=== PATIENT | male | born 1955 | race Caucasian/White ===

== ENCOUNTER 2023-03-11 16:42 | Emergency (ER) | payer OTHER, SELFPAY ==
[2023-03-11 17:24] VITALS: BP 149/84; PULSE 65; RESP 16; TEMP 36.3; O2SAT 99
[2023-03-11 18:10] LABS: Influenza A QL RT-PCR Negative (Negative); Influenza B QL RT-PCR Negative (Negative); RSV RNA, RT-PCR Negative (Negative); SARS-CoV-2 RNA PCR Negative (Negative)
--- NOTE | 2023-03-11 19:35 | ED.GENADULT ---
HPI - General Adult General Chief complaint: Upper Respiratory Infection <KESHAV Blackwell Last Filed: 03/12/23 03:17> Stated complaint: neck pain/body aches <KESHAV Blackwell Last Filed: 03/12/23 03:17> Time Seen by Provider: 03/11/23 19:02 <KESHAV Blackwell Last Filed: 03/12/23 03:17> Source: patient <KESHAV Blackwell Last Filed: 03/12/23 03:17> Mode of arrival: ambulatory <KESHAV Blackwell Last Filed: 03/12/23 03:17> Limitations: no limitations <KESHAV Blackwell Last Filed: 03/12/23 03:17> History of Present Illness HPI narrative: This is a 67-year-old male who presents to the ED with chief complaint of URI symptoms for the past 4 days. Patient states that he has had intermittent fevers, body aches, headache, sinus congestion and sore throat. Reports occasional cough. Denies any shortness of breath or chest pain. Denies any known sick contacts but is around a lot of people at work. Reports Tmax of 100.4. He states his symptoms do improve greatly with Aleve. He states that home COVID test was so he wanted to come here. <Neftali Yun PA-C - Last Filed: 03/12/23 03:17> Related Data Allergies/adverse reactions: Allergies Allergy/AdvReac Type Severity Reaction Status Date / Time No Known Allergies Allergy Verified 03/11/23 18:39 <Neftali Yun PA-C - Last Filed: 03/12/23 03:17> Review of Systems Review of Systems: All systems as dictated in HPI <KESHAV Blackwell Last Filed: 03/12/23 03:17> Exam Narrative: GENERAL: Well-appearing, well-nourished, and in no acute distress. HEAD: Normocephalic, atraumatic. EYES: PERRLA and EOMI. ENT: Nares clear, no rhinorrhea or epistaxis. Mucous membranes moist. Oropharynx without tonsillar hypertrophy exudate or other lesions. NECK: Supple. No adenopathy or masses. CHEST: No respiratory distress. Clear to auscultation. No wheezes rales or rhonchi HEART: Regular rate and rhythm. No murmur heard. Normal peripheral pulses. ABDOMEN: Soft, nontender, nondistended, normal active bowel sounds. MSK: Normal range of motion. No edema. SKIN: Warm, dry, no rash. NEURO: Alert and oriented x3. No focal deficits. PSYCH: Normal mood and affect. <Neftali Yun PA-C - Last Filed: 03/12/23 03:17> Course BIOMEDICAL INSTRUMENT TECHNICIAN/PA Physician Supervision This is a was performed by both a physician and an APC. I performed all aspects of the MDM as documented w/ the following additions: 67-year-old presenting with URI symptoms. viral swabsnegative. Patient well-appearing with stable vitals. Discharged with supportive treatment All questions answered. Patient in agreement w/ disposition. <Ronak Lutz MD - Last Filed: 03/14/23 03:45> Vital Signs Vital signs: Vital Signs Temperature 97.3 F L 03/11/23 17:24 Pulse Rate 65 03/11/23 17:24 Respiratory Rate 16 03/11/23 17:24 Blood Pressure 149/84 H 03/11/23 17:24 Pulse Oximetry 99 03/11/23 17:24 Oxygen Delivery Room Air 03/11/23 17:24 Temperature 97.3 F L 03/11/23 17:24 Pulse Rate 66 03/11/23 20:28 Respiratory Rate 18 03/11/23 20:28 Blood Pressure 139/98 H 03/11/23 20:28 Pulse Oximetry 100 03/11/23 20:28 Oxygen Delivery Room Air 03/11/23 17:24 <Neftali Yun PA-C - Last Filed: 03/12/23 03:17> Vital Signs Temperature 97.3 F L 03/11/23 17:24 Pulse Rate 65 03/11/23 17:24 Respiratory Rate 16 03/11/23 17:24 Blood Pressure 149/84 H 03/11/23 17:24 Pulse Oximetry 99 03/11/23 17:24 Oxygen Delivery Room Air 03/11/23 17:24 Temperature 97.3 F L 03/11/23 17:24 Pulse Rate 66 03/11/23 20:28 Respiratory Rate 18 03/11/23 20:28 Blood Pressure 139/98 H 03/11/23 20:28 Pulse Oximetry 100 03/11/23 20:28 Oxygen Delivery Room Air 03/11/23 17:24 <Ronak Lutz MD - Last Filed: 03/14/23 03:45> Medical Decision Making MDM Narrative Medical decision making narrative:
[2023-03-11 20:28] VITALS: BP 139/98; PULSE 66; RESP 18; O2SAT 100
== END 2023-03-11 20:28 | disposition home or self-care (01) ==
PROVIDERS: Emergency Medicine; Emergency Provider Physician Assistant; PCP Internal Medicine
DX: J06.9 Acute upper respiratory infection, unspecified (principal); Z20.822 Contact with and (suspected) exposure to COVID-19
CPT/HCPCS: 87637; 99283